=== PATIENT | female | born 1990 | race Caucasian/White ===

== ENCOUNTER → 2023-03-03 11:45 | Outpatient (BNVA) | payer OTHER, SELFPAY | PROVIDERS: PCP Nurse Practitioner; Visit Provider Internal Medicine Pulmonary Disease | DX: R09.89 Other specified symptoms and signs involving the circulatory and respiratory systems (principal); J30.2 Other seasonal allergic rhinitis | CPT/HCPCS: 36415; 82785; 85025; 86003; 99204 ==

== ENCOUNTER 2023-03-05 09:03 | Outpatient (CLI) | payer OTHER, SELFPAY ==
--- NOTE | 2023-03-05 09:15 | FL_ITS ---
WS: [id number] EXAMINATION: FL barium swallow 28131 REASON FOR EXAM: Occasional heartburn and hesitancy of swallowing ORDER DATE: 03/05/2023 9:13 AM COMPARISON: None available. TECHNIQUE: The patient was able to swallow thick barium for the esophagram. Cine-fluoroscopy with rapid sequence imaging was obtained while the patient swallowed. The patient was also placed supine and in various recumbent positions during the exam. FINDINGS: There was a normal mucosal fold pattern in the upper esophagus. There is no sign of diverticula, webs or stricture. There was no delay in contrast emptying from the esophagus into the stomach. There wer e no tertiary contraction waves to delay esophageal emptying. There is no sliding hiatal hernia. With provocative maneuvers no gastroesophageal reflux was not seen. The distal esophageal mucosal pattern is unremarkable. IMPRESSION: Normal esophageal study. FLUOROSCOPY TIME: 1min [id number] # OF SPOT FILMS:
== END 2023-03-05 09:04 | disposition home or self-care (01) ==
PROVIDERS: PCP Nurse Practitioner; Visit Provider Internal Medicine Pulmonary Disease
DX: R09.89 Other specified symptoms and signs involving the circulatory and respiratory systems (principal)
CPT/HCPCS: 74220

== ENCOUNTER → 2023-11-06 09:56 | Outpatient (BNVA) | payer OTHER, SELFPAY | PROVIDERS: PCP Nurse Practitioner; Referring Provider Nurse Practitioner; Visit Provider Dermatology | DX: S60.931A Unspecified superficial injury of right thumb, initial encounter (principal); X58.XXXA Exposure to other specified factors, initial encounter; L40.8 Other psoriasis; L81.4 Other melanin hyperpigmentation; D22.61 Melanocytic nevi of right upper limb, including shoulder | CPT/HCPCS: 99204 ==

== ENCOUNTER → 2023-11-26 10:10 | Outpatient (BNVA) | payer OTHER, SELFPAY | PROVIDERS: PCP Nurse Practitioner; Referring Provider Nurse Practitioner; Visit Provider Surgery | DX: R19.7 Diarrhea, unspecified (principal); R10.9 Unspecified abdominal pain; G89.29 Other chronic pain | CPT/HCPCS: 99204 ==

== ENCOUNTER → 2023-12-12 12:24 | Outpatient (BNVA) | payer OTHER, SELFPAY | PROVIDERS: PCP Nurse Practitioner; Visit Provider Surgery | DX: R19.7 Diarrhea, unspecified (principal) | CPT/HCPCS: 82274; 83630; 83993 ==

== ENCOUNTER 2024-01-13 10:32 | Day surgery (SDC) | payer OTHER, SELFPAY ==
[2024-01-13 10:48] VITALS: BP 121/83; PULSE 90; RESP 18; TEMP 36.6; O2SAT 94; BMI 32.0
--- NOTE | 2024-01-13 10:58 | W.PM.OPSFHP ---
Same Day Surgery H&P Indication for Procedure/HPI DATE OF PROCEDURE: January 13, 2024 CHIEF COMPLAINT/INDICATIONFOR SURGICAL PROCEDURE: abdominal pain and diarrhea PREOP DIAGNOSIS: abdominal pain and diarrhea PLANNED PROCEDURE: Operation Date: 01/13/24 12:00 Proposed Procedures p EGD 03714, 55989, G0105, R19.7, R10.9(Not Applicable) - Bob Bassett MD s Colonoscopy(Not Applicable) - Bob Bassett MD Medications/Allergies* Home Medications Medication Instructions Recorded Confirmed Type montelukast 10 mg tablet 10 mg PO DAILY 10/31/22 01/08/24 History venlafaxine 150 mg 150 mg PO DAILY 10/31/22 01/08/24 History capsule,extended release 24 hr albuterol 90 mcg inhalation PRN 01/08/24 01/08/24 History aripiprazole 5 mg tablet (Abilify) 5 mg PO DAILY 01/08/24 01/08/24 History epinephrine 0.3 mg/0.3 mL 0.3 mg IM Q4H PRN Allergic Reaction 01/13/24 01/13/24 History injection, auto-injector Allergies/Adverse Reactions Allergy/AdvReac Type Severity Reaction Status Date / Time Alpha-Gal Allergy Intermediate ALGY-Hives Verified 01/13/24 10:42 (Khgrsxkcc-Oexrw-5,3-Gala Pertinent History/Comorbid Conditions* Family History (Updated 03/03/23 @ 10:15 by Shayy Vaughan) Graves disease Mother Diabetes Mother Pertinent Exam Findings alert, oriented x 3, clear to auscultation bilaterally and regular rate & rhythm Recommendations Surgery/Procedure today Coding Level of Care Code Acute Code for Chg Fwd
[2024-01-13] MEDS: sodium chloride 0.9% 1,000 ML 30 ML IV (11:07)
--- NOTE | 2024-01-13 11:07 | ANES.PREANE2 ---
Pre-Anesthetic Assessment Height/Weight: Height 1.57 m Weight 79.379 kg Temp Pulse Resp BP Pulse Ox O2 Del Method 97.9 F 90 18 121/83 94 Room Air 01/13/24 10:48 01/13/24 10:48 01/13/24 10:48 01/13/24 10:48 01/13/24 10:48 01/13/24 10:48 Preop Diagnosis: abdominal pain and diarrhea Operation Date: 01/13/24 12:00 Proposed Procedures p EGD 69639, 64960, G0105, R19.7, R10.9(Not Applicable) - Bob Bassett MD s Colonoscopy(Not Applicable) - Bob Bassett MD Was Beta [place] taken within 24 hours: N/A Was Clonidine taken within 24 hours: N/A Last intake: Intake Last Liquid Date 01/12/24 Last Liquid Time 21:00 Last Solid Date 01/11/24 Last Solid Time 18:00 Social smokes marijuana daily Exam alert, oriented x 3, clear to auscultation bilaterally and regular rate & rhythm Airway Submandibular: within normal limits Cervical ROM: within normal limits Mallampati: Class II Dentition: caps (Two front incisors) History/ROS No significant history except as noted and No significant complaints Pulmonary Asthma CV/HEM None reported None reported Hepatic None reported GI Gastroesophageal Reflux Disease diarrhea Metabolic None reported Musc/skel None reported Neuropsych None reported Anesthetic Plan ASA status: 2 Anesthesia: Anesthesia Evaluation and MAC Risk of > 500 ml blood loss (7ml/kg in children): No Medications/Allergies Home Medications Medication Instructions Recorded Confirmed Last Taken Type montelukast 10 mg tablet 10 mg PO DAILY 10/31/22 01/08/24 01/12/24 History venlafaxine 150 mg 150 mg PO DAILY 10/31/22 01/08/24 01/12/24 History capsule,extended release 24 hr budesonide 160 mcg-glycopyr 9 2 inh inhalation BID #10.7 grams 03/03/23 01/08/24 01/13/24 Rx mcg-formot 4.8 mcg/actuation HFA inhaler (Breztri Aerosphere) albuterol 90 mcg inhalation PRN 01/08/24 01/08/24 01/08/24 History aripiprazole 5 mg tablet (Abilify) 5 mg PO DAILY 01/08/24 01/08/24 01/12/24 History epinephrine 0.3 mg/0.3 mL 0.3 mg IM Q4H PRN Allergic Reaction 01/13/24 01/13/24 Unknown History injection, auto-injector Allergies Allergy/AdvReac Type Severity Reaction Status Date / Time Alpha-Gal Allergy Intermediate ALGY-Hives Verified 01/13/24 10:42 (Ybtkgyrsa-Kdwce-7,3-Gala PFSH Anesthesia Family History Mother Diabetes Graves disease Father No problems noted. Female Reproductive History Date of last menstrual period: 01/01/24 Data Anesthesia Cardiac Studies: No Data to Display
[2024-01-13 11:11] LABS: OR HCG Qualitative Urine Negative (Negative)
[2024-01-13 12:10] VITALS: BP 106/74; PULSE 72; RESP 16; TEMP 36.6; O2SAT 98
[2024-01-13 12:21] VITALS: BP 121/88; PULSE 87; RESP 16; O2SAT 97
--- NOTE | 2024-01-13 14:01 | ANE.PACU2 ---
Inpatient post-anesthesia follow up: Airway intact: Yes Vital signs: Temperature 98 F Pulse Rate 87 Respiratory Rate 16 Blood Pressure 121/88 Pulse Oximetry 97 Oxygen Delivery Me thod Room Air Oxygen Flow Rate Fraction of Inspir ed Oxygen Hydration adequate: Yes Nausea and vomiting: No Pain level: 2 Mental status: Baseline
== END 2024-01-13 12:45 | disposition home or self-care (01) ==
PROVIDERS: Anesthesiology; PCP Nurse Practitioner; Visit Provider Surgery
PROC: 0DJ08ZZ Inspection of Upper Intestinal Tract, Via Natural or Artificial Opening Endoscopic (ICD-10-PCS; CPT 43235; principal; 2024-01-13 12:00)
PROC: 0DJD8ZZ Inspection of Lower Intestinal Tract, Via Natural or Artificial Opening Endoscopic (ICD-10-PCS; CPT 45378; 2024-01-13 12:00)
DX: R19.7 Diarrhea, unspecified (principal); K29.50 Unspecified chronic gastritis without bleeding
CPT/HCPCS: 45380; 81025; 88305; J2704; J7030

== ENCOUNTER → 2024-02-04 09:33 | Outpatient (BNVA) | payer OTHER, SELFPAY | PROVIDERS: PCP Nurse Practitioner; Visit Provider Surgery | DX: Z09 Encounter for follow-up examination after completed treatment for conditions other than malignant neoplasm (principal) | CPT/HCPCS: 99213 ==

== ENCOUNTER 2024-05-12 10:29 | Emergency (ER) | payer OTHER, SELFPAY ==
[2024-05-12 11:05] VITALS: BP 118/82; PULSE 87; RESP 16; TEMP 36.7; O2SAT 98; BMI 34.5
--- NOTE | 2024-05-12 13:07 | ED_ITS ---
HPI - Seizure 2 General: Chief Complaint: Seizure Stated Complaint: seizure last night ([place]) Time Seen by Provider: 05/12/24 13:04 History of Present Illness: HPI Narrative: 33-year-old female comes in today for a concern of possible seizure. Patient was taken a nap on her couch and when she awakened she noticed that she had wet herself and had a headache and brain felt foggy. Patient was concerned that she might have a seizure. Patient's female significant other reported that she did not note any violent tremors or twitches but did note that her 1 hand seem to be very rhythmic and movement for a short period of time. Patient denies any prior episodes. Patient takes venlafaxine and Singulair routinely. Patient occasionally uses marijuana. Patient has occasional headaches. Patient takes no routine [id number]-gtb-ntrspkd medicines or supplements. Patient denies any recent stress or illnesses. Related Data Home Medications Medication Instructions Recorded Confirmed montelukast 10 mg tablet 10 mg PO DAILY 10/31/22 02/04/24 venlafaxine 150 mg 150 mg PO DAILY 10/31/22 02/04/24 capsule,extended release 24 hr albuterol 90 mcg inhalation PRN 01/08/24 02/04/24 aripiprazole 5 mg tablet (Abilify) 5 mg PO DAILY 01/08/24 02/04/24 epinephrine 0.3 mg/0.3 mL 0.3 mg IM Q4H PRN Allergic Reaction 01/13/24 02/04/24 injection, auto-injector Previous Rx's Medication Instructions Recorded budesonide 160 mcg-glycopyr 9 2 inh inhalation BID #10.7 grams 03/03/23 mcg-formot 4.8 mcg/actuation HFA inhaler (Breztri Aerosphere) pantoprazole 40 mg tablet,delayed 40 mg PO BID #60 tabs 01/13/24 release Allergies Allergy/AdvReac Type Severity Reaction Status Date / Time Alpha-Gal Allergy Intermediate ALGY-Hives Verified 02/04/24 09:38 (Ckdunbnno-Qbrik-6,3-Gala Review of Systems 2 General: Reports: 10 or more systems reviewed and unremarkable except in HPI and below PFSH ED 2 PFSH: Family History Mother Diabetes Graves disease Father No problems noted. Social History Smoking and tobacco/nicotine status: current every day tobacco/nicotine user Physical Exam 2 Const: COMMON NORMALS: alert HENMT: COMMON NORMALS: normocephalic HEAD & SCALP: normocephalic Neck/C-Spine: COMMON NORMALS: full ROM Resp: COMMON NORMALS: normal respiratory effort and clear to auscultation bilaterally AUSCULTATION: clear to auscultation bilaterally Cardio: COMMON NORMALS: regular rate and regular rhythm RATE: regular rate RHYTHM: regular rhythm Back/Pelvis: COMMON NORMALS: thoracic and lumbar spine normal to inspection Extremity: COMMON NORMALS: normal to inspection Neuro: SENSORIUM/ORIENTATION: Yes alert Psych: COMMON NORMALS: mental status grossly normal, cooperative and normal affect Skin: COMMON NORMALS: turgor normal GENERAL SKIN EXAM: turgor normal Course 2 Vital Signs: Vital signs: Vital Signs Temperature 98.0 F 05/12/24 11:05 Pulse Rate 78 05/12/24 15:35 Respiratory Rate 16 05/12/24 14:50 Blood Pressure 129/78 05/12/24 15:35 Pulse Oximetry 97 05/12/24 15:35 Oxygen Delivery Me thod Room Air 05/12/24 14:50 MDM - Seizure MDM Narrative Medical decision making narrative: Patient presents to the ER for concerns of possible seizure episode last evening. Patient appears nontoxic. Patient moves all extremities well. Respirations are even. Lungs are clear to auscultation. No focal neurodeficits. Vital signs are normal. Differential diagnosis includes but not limited to epileptic seizures, conversion disorder, brain mass or tumor, electrolyte imbalance, urinary tract infection. CT of the head was unremarkable. CBC showed no abnormalities. CMP showed a sodium of 135, lactic acid of 2 point. Urinalysis showed negative hCG, no significance for infection, and positive for THC. Lactic acid being elevated may be suggestive of a seizure-like episode. Procalcitonin was negative. Recommend follow-up with neurology for further evaluation. No signs of significant illness or concerns for tumor or mass in the brain. Recommend follow-up for further evaluation and treatment. Patient reported understanding agreed to plan. Lab Data 05/12/24 13:41 05/12/24 13:41 Labs: Radiology Impressions Head CT 05/12/24 13:23 IMPRESSION: Negative head CT. Laboratory Results WBC 10.54 10^3/uL (3.29-11.43) 05/12/24 13:41 RBC 4.90 10^6/uL (3.85-5.65) 05/12/24 13:41 Hgb 13.90 g/dL (11.27-16.99) 05/12/24 13:41 Hct 42.8 % (36-47) 05/12/24 13:41 MCV 87.3 fl (85-98) 05/12/24 13:41 MCH 28.4 pg (27-33) 05/12/24 13:41 MCHC 32.5 g/dL (30-55) 05/12/24 13:41 RDW 13.7 % (12.1-15.1) 05/12/24 13:41 Plt Count 322 10^3/cmm (157-399) 05/12/24 13:41 MPV 10.8 fL (7.4-10.4) H 05/12/24 13:41 Neut % (Auto) 61.1 % 05/12/24 13:41 Lymph % (Auto) 26.9 % 05/12/24 13:41 Mcpherson % (Auto) 5.0 % 05/12/24 13:41 Eos % (Auto) 5.4 % 05/12/24 13:41 Baso % (Auto) 0.9 % 05/12/24 13:41 Neut # (Auto) 6.44 10^3/uL (1.8-7.7) 05/12/24 13:41 Lymph # (Auto) 2.8 10^3/uL (0.8-4.8) 05/12/24 13:41 Mcpherson # (Auto) 0.5 10^3/uL (0.2-0.9) 05/12/24 13:41 Eos # (Auto) 0.6 10^3/uL (0.0-0.8) 05/12/24 13:41 Baso # (Auto) 0.1 10^3/uL (0.0-0.1) 05/12/24 13:41 Nucleated RBC % (auto) 0 % 05/12/24 13:41 Nucleated RBCs # 0.0 /100WBC 05/12/24 13:41 Sodium 135 mmol/L (136-145) L 05/12/24 13:41 Potassium 3.6 mmol/L (3.5-5.1) 05/12/24 13:41 Chloride 99 mmol/L (98-107) 05/12/24 13:41 Carbon Dioxide 23 mmol/L (22-29) 05/12/24 13:41 Anion Gap 16.6 (5-19) 05/12/24 13:41 BUN 7 mg/dL (6-20) 05/12/24 13:41 Creatinine 0.7 mg/dL (0.5-0.9) 05/12/24 13:41 GFR Calculation 97.0 mL/min (90-130) 05/12/24 13:41 Glucose 121 mg/dL (65-115) H 05/12/24 13:41 Calculated Osmolality 279 mOsm/kg (285-295) L 05/12/24 13:41 Lactic Acid 2.9 mmol/L (0.5-2.2) H 05/12/24 13:41 Calcium 8.7 mg/dL (8.5-10.5) 05/12/24 13:41 Total Bilirubin 0.2 mg/dL (0.15-1.2) 05/12/24 13:41 AST 24 U/L (0-32) 05/12/24 13:41 ALT 28 U/L (0-33) 05/12/24 13:41 Alkaline Phosphatase 64 U/L (35-105) 05/12/24 13:41 Total Protein 7.5 g/dL (6.6-8.7) 05/12/24 13:41 Albumin 4.2 g/dL (3.5-5.2) 05/12/24 13:41 Globulin 3.3 g/dL (1.3-4.6) 05/12/24 13:41 Procalcitonin 0.02 ng/mL (0-0.5) 05/12/24 13:41 HCG, Qual Negative (Negative) 05/12/24 14:25 Urine Color Yellow (Yellow) 05/12/24 14:25 Urine Appearance Clear (CLEAR) 05/12/24 14:25 Urine pH 7.0 (5-7) 05/12/24 14:25 Ur Specific Atkins 1.028 (1.005-1.030) 05/12/24 14:25 Urine Protein Trace (Negative) A 05/12/24 14:25 Urine Glucose (UA) Negative (Normal) 05/12/24 14:25 Urine Ketones Trace (Negative) 05/12/24 14:25 Urine Blood Negative (Negative) 05/12/24 14:25 Urine Nitrate Negative (Negative) 05/12/24 14:25 Urine Bilirubin Negative (Negative) 05/12/24 14:25 Urine Urobilinogen 1.0 mg/dL (Negative) 05/12/24 14:25 Ur Leukocyte Esterase Negative (Negative) 05/12/24 14:25 Urine RBC 0-4 /hpf (0-2) H 05/12/24 14:25 Urine WBC 0-4 /hpf (0-5) H 05/12/24 14:25 Ur Squamous Epith Cells 5-10 /hpf (0-5) H 05/12/24 14:25 Amorphous Sediment Not Reportable 05/12/24 14:25 Urine Bacteria Trace /hpf (NONE) 05/12/24 14:25 Hyaline Casts 0-4 /lpf H 05/12/24 14:25 Urine Mucus 1+ /hpf 05/12/24 14:25 Urine Opiates Screen Negative ng/mL (Negative) 05/12/24 14:25 Ur Barbiturates Screen Negative ng/mL (Negative) 05/12/24 14:25 Ur Phencyclidine Scrn Negative ng/mL (Negative) 05/12/24 14:25 Ur Amphetamines Screen Negative ng/mL (Negative) 05/12/24 14:25 U Benzodiazepines Scrn Negative ng/mL (Negative) 05/12/24 14:25 Urine Cocaine Screen Negative ng/mL (Negative) 05/12/24 14:25 U Marijuana (THC) Screen Positive ng/mL (Negative) H 05/12/24 14:25 All radiology interpretation(s) finalized by discharge Discharge Plan Discharge Patient Disposition: Home Clinical Impression: Seizure Condition: Stable Prescriptions: No Action venlafaxine 150 mg capsule,extended release 24hr 150 mg PO DAILY montelukast 10 mg tablet 10 mg PO DAILY Breztri Aerosphere 160-9-4.8 mcg/actuation HFA aerosol inhaler 2 inh inhalation BID Qty: 10.7 6RF aripiprazole [Abilify] 5 mg Tablet 5 mg PO DAILY albuterol 90 mcg inhalation PRN epinephrine 0.3 mg/0.3 mL Auto-Injector 0.3 mg IM Q4H PRN (Reason: Allergic Reaction) pantoprazole 40 mg tablet,delayed release (DR/EC) 40 mg PO BID Qty: 60 0RF Discharge Orders: Discharge ED (Routine); Ordered 05/12/24 Ordered By: Seun Rossi Referrals: Valeria Sneed FNP [Primary Care Provider] - Discharge Diet: Usual diet Discharge Activity: Increase activity as tolerated Patient Instructions: New-Onset Seizure in Adults (ED) Activity Restrictions/Additional Instructions: Follow-up with neurologist for further evaluation and treatment. Continue with routine medications as directed. Drink plenty of water and fluids. Return to ER for new concerns. Case management will contact you to help with follow-up appoint with neurology. For safety of yourself and others at this time would be recommended to avoid driving until cleared by neurologist. Coding Level of Care Code ED Punch Operator for Misael Turner
--- NOTE | 2024-05-12 13:23 | CT_ITS ---
WS: [id number] CT HEAD NONCONTRAST HISTORY: seizure, headaches TECHNIQUE: Contiguous axial imaging performed through the brain. Bone and soft tissue windows. Sagitt al and coronal reformats reviewed. All CT scans at [facility] use at least one of these dose optimization techniques: automated exposure control; mA and/or kV adjustment per patient size (includ es targeted exams where dose is matched to clinical indication); or iterative reconstruction. DLP: 1021.98 mGy.cm COMPARISON: None available. No acute intracranial hemorrhage, midline shift or mass effect. No atrophy or prior infarcts or herniation. Ventricles: Normal size with no hydrocephalus. No inferior displacement of cerebellar tonsils. Paranasal sinuses: As visualized are clear. Mastoid air cells: Well pneumatized. Calvarium and scalp: Skull is intact with no soft tissue edema or swelling. CT/CT head wo con* [id number] IMPRESSION: Negative head CT.
[2024-05-12 14:01] LABS: Basophils # 0.1 10^3/uL (0.0-0.1); Basophils % 0.9 %; Eosinophils # 0.6 10^3/uL (0.0-0.8); Eosinophils % 5.4 %; Hematocrit 42.8 % (36-47); Lymphocytes # 2.8 10^3/uL (0.8-4.8); Lymphocytes % 26.9 %; Mean Corpuscular HGB Conc 32.5 g/dL (30-55); Mean Corpuscular Hemoglobin 28.4 pg (27-33); Mean Corpuscular Volume 87.3 fl (85-98); Mean Platelet Volume 10.8 fL (7.4-10.4); Monocytes # 0.5 10^3/uL (0.2-0.9); Neutrophils # 6.44 10^3/uL (1.8-7.7); Neutrophils % 61.1 %; Nucleated Red Blood Cells % 0 %; Platelet Count 322 10^3/cmm (157-399); Red Cell Distribution Width 13.7 % (12.1-15.1); White Blood Count 10.54 10^3/uL (3.29-11.43)
[2024-05-12 14:20] LABS: Alanine Aminotransferase 28 U/L (0-33); Albumin Level 4.2 g/dL (3.5-5.2); Alkaline Phosphatase 64 U/L (35-105); Anion Gap 16.6 (5-19); Aspartate Amino Transferase 24 U/L (0-32); Blood Urea Nitrogen 7 mg/dL (6-20); Calcium 8.7 mg/dL (8.5-10.5); Carbon Dioxide 23 mmol/L (22-29); Chloride 99 mmol/L (98-107); Creatinine Clr Calc Pharmacy 117.2118; Globulin 3.3 g/dL (1.3-4.6); Glucose 121 mg/dL (65-115); Osmolality Calculated 279 mOsm/kg (285-295); Potassium 3.6 mmol/L (3.5-5.1); Sodium 135 mmol/L (136-145); Total Bilirubin 0.2 mg/dL (0.15-1.2); Total Protein 7.5 g/dL (6.6-8.7)
[2024-05-12 14:21] LABS: Lactic Sepsis W/Reflex 2.9 mmol/L (0.5-2.2)
[2024-05-12 14:27] LABS: Procalcitonin 0.02 ng/mL (0-0.5)
[2024-05-12 14:40] LABS: HCG Qualitative Urine. Negative (Negative)
[2024-05-12 14:50] VITALS: BP 122/86; PULSE 92; RESP 16; O2SAT 99
[2024-05-12 15:26] LABS: Bilirubin Urine Negative (Negative); Blood Urine Negative (Negative); Glucose Urine UA Negative (Normal); Ketones Urine Trace (Negative); Leukocyte Esterase Urine Negative (Negative); Nitrate Urine Negative (Negative); Protein Urine Trace (Negative); Specific Gravity, Urine 1.028 (1.005-1.030); Urine Appearance Clear (CLEAR); Urine Color Yellow (Yellow)
[2024-05-12 15:35] VITALS: BP 129/78; PULSE 78; O2SAT 97
[2024-05-12 15:36] LABS: UA Manual Slide Review YES; UA Slide Review UA Slide Review Perf
[2024-05-12 15:37] LABS: Amphetamines Screen Urine Negative (Negative); Barbiturates Screen Urine Negative (Negative); Benzodiazepines Screen Urine Negative (Negative); Cocaine Screen Urine Negative (Negative); Opiate Screen Urine Negative (Negative); PCP Screen Urine Negative (Negative); THC Screen Urine Positive (Negative)
[2024-05-12 15:38] LABS: Reflex Lactate Order REFLEX LACTIC ORDERD
[2024-05-12 15:38] LABS: Add Urine Culture? No; Add Urine Microscopic? YES; Bacteria Urine TRACE /hpf; Hyaline Casts Urine 0-4 /lpf; Mucus Urine 1+ /hpf; RBC Urine 0-4 /hpf (0-2); WBC Urine 0-4 /hpf (0-5)
--- NOTE | 2024-05-14 01:35 | DCPLANNER ---
Message sent to Neurology for follow up on Seizures-
== END 2024-05-12 15:36 | disposition home or self-care (01) ==
PROVIDERS: Emergency Provider Nurse Practitioner Family; PCP Nurse Practitioner
DX: R56.9 Unspecified convulsions (principal); E11.9 Type 2 diabetes mellitus without complications; Z87.891 Personal history of nicotine dependence
CPT/HCPCS: 36415; 70450; 80053; 80306; 81001; 81025; 83605; 84145; 85025; 99284

== ENCOUNTER → 2024-07-15 11:55 | Outpatient (BNVA) | payer OTHER, SELFPAY | PROVIDERS: PCP Nurse Practitioner; Visit Provider Specialist | DX: R56.9 Unspecified convulsions (principal); R03.0 Elevated blood-pressure reading, without diagnosis of hypertension; G47.10 Hypersomnia, unspecified; R23.2 Flushing | CPT/HCPCS: 99203; 99205 ==

== ENCOUNTER 2024-07-19 10:10 | Emergency (ER) | payer OTHER, SELFPAY ==
[2024-07-19] VITALS (7 sets, daily range): BP systolic 132–153; BP diastolic 83–95; PULSE 91–121; RESP 16–18; TEMP 36.9; O2SAT 95–97; BMI 34.7
--- NOTE | 2024-07-19 10:16 | ECG_ITS ---
[facility] Date[facility] 2024-07-19 Pat Name: Julieta Miller Department: Room: Gender: Female [employer]: : 1990 Requested By: Megan Hooker Order Number: [id number] Thu MD: Murphy Blanca M.D. Measurements Intervals [place] Rate: 114 P: 74 IN: 112 QRS: 60 QRSD: 73 T: 36 QT: 308 QTc: 424 Interpretive Statements SINUS TACHYCARDIA WITH SHORT IN INTERVAL MODERATE ST DEPRESSION [0.05+ mV ST DEPRESSION] No previous ECG available for comparison Electronically Signed On 07-19-2024 17:27:04 DIRECTOR CALL by Murphy Blanca M.D. [email or web address]
--- NOTE | 2024-07-19 10:29 | XRR_ITS ---
PROCEDURE INFORMATION: Exam: XR Chest Exam date and time: 07/19/2024 11:02 AM Age: 33 years old Clinical indication: Cough and shortness of breath; Additional info: Cough, SOB, asthma TECHNIQUE: Imaging protocol: Radiologic exam of the chest. Views: 1 view. COMPARISON: 1. CT chest wo con [id number] 01/09/2023 1:46 PM 2. DX XR chest 2V* [id number] 12/26/2022 3:47 PM FINDINGS: Lungs: Unremarkable. No consolidation. Pleural spaces: Unremarkable. No pleural effusion. No pneumothorax. Heart/Mediastinum: Unremarkable. No cardiomegaly. Bones/joints: Unremarkable. XR/XR chest 1V portable [id number] IMPRESSION: No acute findings.
--- NOTE | 2024-07-19 10:47 | ED_ITS ---
HPI - Asthma General: Chief Complaint: Shortness of Breath/Dyspnea Stated Complaint: sob Time Seen by Provider: 07/19/24 10:35 Source: patient Mode of arrival: ambulatory Limitations: no limitations History of Present Illness: Patient is a nice 33-year-old female presents to ED today with a complaint of shortness of breath and difficulty breathing and cough. Believes she has bronchitis. She states symptoms started approximately 2 days ago. She was recently in [place] with some other individuals who developed similar symptoms around the same time as she did. She is a known asthmatic. She states normally she does not require her rescue inhaler and only uses this when she gets sick . She states she used her nebulizer albuterol vials multiple times yesterday evening without any relief. MD complaint: asthma attack , shortness of breath and wheezing Onset (ago): day(s) Severity: moderate Context: recent URI Associated symptoms: Reports non-productive cough; Deny chest pain, fever(s), hemoptysis or syncope Related Data Home Medications Medication Instructions Recorded Confirmed montelukast 10 mg tablet 10 mg PO DAILY 10/31/22 07/19/24 venlafaxine 150 mg 150 mg PO DAILY 10/31/22 07/19/24 capsule,extended release 24 hr epinephrine 0.3 mg/0.3 mL 0.3 mg IM Q4H PRN Allergic Reaction 01/13/24 07/19/24 injection, auto-injector acetaminophen 500 mg tablet 1,000 mg PO QID PRN pain or fever 07/19/24 07/19/24 (Tylenol Extra Strength) albuterol sulfate 90 mcg/actuation 1 puff inhalation QID PRN 07/19/24 07/19/24 aerosol inhaler (Ventolin HFA) Shortness Of Breath Or Wheezing calcium carbonate (Tums) 200 mg PO QID PRN Acid Reflux 07/19/24 07/19/24 cholecalciferol (vitamin D3) 125 125 mcg PO DAILY 07/19/24 07/19/24 mcg (5,000 unit) tablet (Vitamin D3) guaifenesin 200 mg tablet 400 mg PO Q4H PRN Cough 07/19/24 07/19/24 Previous Rx's Medication Instructions Recorded budesonide 160 mcg-glycopyr 9 2 inh inhalation BID #10.7 grams 03/03/23 mcg-formot 4.8 mcg/actuation HFA inhaler (Breztri Aerosphere) pantoprazole 40 mg tablet,delayed 40 mg PO BID #60 tabs 01/13/24 release ipratropium 0.5 mg-albuterol 3 mg 3 ml inhalation Q4H PRN shortness 07/19/24 (2.5 mg base)/3 mL nebulization of breath or wheezing #90 mL soln prednisone 10 mg tablet 10 mg PO DAILY 7 days #27 tabs 07/19/24 Allergies Allergy/AdvReac Type Severity Reaction Status Date / Time Alpha-Gal Allergy Intermediate ALGY-Hives Verified 07/19/24 10:27 ([id number]-[id number]-7,3-Gala Review of Systems Const: Denies: fever(s), chills, body aches, fatigue or malaise ENMT: Reports: nasal discharge and nasal congestion; Denies: throat pain, odynophagia or ear or mastoid pain Card: Denies: chest pain, palpitations, lightheadedness, syncope or pre-syn cope Resp: Reports: dyspnea, non-productive cough and wheezing; Denies: pain on inspiration or hemoptysis GI: Denies: abdominal pain, nausea, vomiting or diarrhea Musc: Denies: neck pain, back pain, extremity pain, extremity swelling, joint pain or joint swelling Skin/Breast: Denies: rash Neuro: Denies: headache(s), numbness in extremities, weakness in extremities, sensory changes or dizziness PFSH ED 2 PFSH: Family History Mother Diabetes Graves disease Father No problems noted. Social History Smoking and tobacco/nicotine status: current every day tobacco/nicotine user (vapes) Physical Exam Const: COMMON NORMALS: no acute distress, patient oriented x3, no limitations, alert and well nourished GENERAL APPEARANCE: cooperative ORIENTATION/CONSCIOUSNESS: Yes awake, Yes oriented to person, Yes oriented to place and Yes oriented to time HENMT: COMMON NORMALS: external ears normal, EAC's normal and TM's normal bilaterally FACE & SINUS: normal facial exam EXTERNAL EAR: Yes external ears normal EXTERNAL AUDITORY CANAL: EAC's normal TYMPANIC MEMBRANE: TM's normal bilaterally MOUTH: Normal oral and palatal mucosa present and lip normal THROAT: posterior oropharynx normal and tonsils normal Eye: GENERAL EYE: appearance normal, both eyes and all related structures Neck/C-Spine: COMMON NORMALS: full ROM, no lymphadenopathy and no meningeal signs GENERAL: Yes normal visual inspection Chest: COMMONS NORMALS: normal inspection of the chest and normal palpation of entire chest wall Resp: EFFORT & INSPECTION: Yes respiratory distress (mild increased effort) AUSCULTATION: wheezes throughout Cardio: COMMON NORMALS: regular rhythm RATE: tachycardic (intermittently after coughing) RHYTHM: regular rhythm Extremity: COMMON NORMALS: no clubbing, cyanosis or edema, no calf tenderness and no pedal edema GENERAL: Yes normal exam except as noted Neuro: COMMON NORMALS: patient oriented x3, moves all extremities, no focal motor deficits, no sensory deficits noted and gait normal SENSORIUM/ORIENTATION: Yes alert, Yes oriented to person, Yes oriented to place and Yes oriented to time MENINGEAL SIGNS: Yes no meningeal signs Course Vital Signs: Vital signs: Vital Signs Temperature 98.4 F 07/19/24 10:21 Pulse Rate 121 H 07/19/24 11:55 Respiratory Rate 18 07/19/24 11:55 Blood Pressure 134/88 07/19/24 11:36 Pulse Oximetry 97 07/19/24 11:55 Oxygen Delivery Me thod Room Air 07/19/24 11:55 MDM - Asthma Medical Decision Making CXR is unremarkable. Patient feels significantly better after IV Solu-Medrol and stacked DuoNeb nebulizer treatments. She feels comfortable going home at this time. Respiratory panel collected and pending. She will be placed on a steroid taper at home. She is requesting DuoNebs to use in her nebulizer at home. Return to ED precautions given. Medical Records I reviewed the patient's medical records. Lab Data Radiology Impressions Chest X-Ray 07/19/24 10:29 IMPRESSION: No acute findings. All radiology interpretation(s) finalized by discharge Discharge Plan Discharge Patient Disposition: Home Clinical Impression: Viral upper respiratory tract infection with cough Asthma exacerbation Qualifiers: Asthma severity: moderate Asthma persistence: unspecified Qualified Code(s): J45.901 - Unspecified asthma with (acute) exacerbation Condition: Stable Prescriptions: New prednisone 10 mg tablet 10 mg PO DAILY 7 Days Qty: 27 0RF Rx Instructions: 6 tabs on days 1-2, 5 tabs on days 3, 4 tabs on day 4, 3 tabs on day 5, 2 tabs on day 6, 1 tab on day 7 ipratropium-albuterol 0.5 mg-3 mg(2.5 mg base)/3 mL solution for nebulization 3 ml inhalation Q4H PRN (Reason: shortness of breath or wheezing) Qty: 90 0RF Rx Instructions: until breathing returns to target peak flow/parameters No Action venlafaxine 150 mg capsule,extended release 24hr 150 mg PO DAILY montelukast 10 mg tablet 10 mg PO DAILY Breztri Aerosphere 160-9-4.8 mcg/actuation HFA aerosol inhaler 2 inh inhalation BID Qty: 10.7 6RF acetaminophen [Tylenol Extra Strength] 500 mg Tablet 1,000 mg PO QID PRN (Reason: pain or fever ) guaifenesin 200 mg Tablet 400 mg PO Q4H PRN (Reason: Cough) albuterol sulfate [Ventolin HFA] 90 mcg/actuation Hfa Aerosol Inhaler 1 puff INHALATION QID PRN (Reason: Shortness Of Breath Or Wheezing) cholecalciferol (vitamin D3) [Vitamin D3] 125 mcg (5,000 unit) Tablet 125 mcg PO DAILY calcium carbonate [Tums] 200 mg calcium (500 mg) Tablet,Chewable 200 mg PO QID PRN (Reason: Acid Reflux) epinephrine 0.3 mg/0.3 mL Auto-Injector 0.3 mg IM Q4H PRN (Reason: Allergic Reaction) pantoprazole 40 mg tablet,delayed release (DR/EC) 40 mg PO BID Qty: 60 0RF Discharge Orders: Discharge ED (Routine); Ordered 07/19/24 Ordered By: Megan Hooker Referrals: Valeria Sneed FNP [Primary Care Provider] - Patient Instructions: Asthma Exacerbation - Adult, Upper Respiratory Infection (DC) Activity Restrictions/Additional Instructions: As we discussed, we will contact you later if your respiratory panel comes back positive for anything. Your chest x-ray here was unremarkable. I have called you in steroids and DuoNeb nebulizers to the pharmacy you specified. You need to return to the emergency department for shortness of breath, difficulty breathing, generally feeling worse or unwell, or any other concerns you may have. I hope you begin to feel better soon. Coding Level of Care Code ED [employer] for Misael Turner
[2024-07-19] MEDS: ipratropium-albuterol 3 mL Neb INHALATION ×3 (11:10→11:47)
[2024-07-19] MEDS: methylPREDNISolone sod succ 125 mg/2 mL INJ IVP (11:22)
[2024-07-19 13:23] LABS: Adenovirus Not Detected (NOT DETECT); Chlamydia Pneumoniae Not Detected (NOT DETECT); Coronavirus 229E,HKU1,NL63,OC4 Not Detected (NOT DETECT); Human Metapneumovirus Not Detected (NOT DETECT); Human Rhinovirus/Enterovirus Not Detected (NOT DETECT); Influenza A Not Detected (NOT DETECT); Influenza A H1 Not Detected (NOT DETECT); Influenza A H1-2009 Not Detected (NOT DETECT); Influenza A H3 Not Detected (NOT DETECT); Influenza B Not Detected (NOT DETECT); Mycoplasma Pneumoniae Not Detected (NOT DETECT); Parainfluenza Virus Type 1 Not Detected (NOT DETECT); Parainfluenza Virus Type 2 Not Detected (NOT DETECT); Parainfluenza Virus Type 3 Not Detected (NOT DETECT); Parainfluenza Virus Type 4 Not Detected (NOT DETECT); Respiratory Syncytial Virus B Not Detected (NOT DETECT); SARS-COV-2 Not Detected (NOT DETECT)
[2024-07-19 13:48] LABS: Respiratory Syncytial Virus A Detected (NOT DETECT)
== END 2024-07-19 12:22 | disposition home or self-care (01) ==
PROVIDERS: Emergency Provider Physician Assistant; PCP Nurse Practitioner
DX: J45.901 Unspecified asthma with (acute) exacerbation (principal); F17.290 Nicotine dependence, other tobacco product, uncomplicated
CPT/HCPCS: 71045; 87486; 87581; 87633; 93005; 94640; 96374; 99284; J2919

== ENCOUNTER → 2024-09-14 14:20 | Outpatient (BNVA) | payer OTHER, SELFPAY | PROVIDERS: PCP Nurse Practitioner; Visit Provider Internal Medicine Cardiovascular Disease | DX: R00.0 Tachycardia, unspecified (principal); R06.02 Shortness of breath | CPT/HCPCS: 36415; 84439; 84443; 84481 ==

== ENCOUNTER → 2024-09-16 07:50 | Outpatient (BNVA) | payer OTHER, SELFPAY | PROVIDERS: PCP Nurse Practitioner; Referring Provider Specialist; Visit Provider Specialist | DX: R56.9 Unspecified convulsions (principal) | CPT/HCPCS: 95819 ==

== ENCOUNTER 2024-10-15 10:45 | Outpatient (CLI) | payer OTHER, SELFPAY ==
--- NOTE | 2024-10-15 11:15 | USCV_ITS ---
Julieta Miller Age: 33 Gender: F : 1990 Exam Date: 10/15/2024 10:59 Ordering Phys: Wojciech Harry MD ([email or web address]) Technologist: TANESHA Exam Location: [facility] – [place] Indication: Tachy, SOB BP: 128 / 881 HR: 93 Rhythm: Sinus Technical Quality: Adequate MEASUREMENTS (Male / Female) Normal Values 2D ECHO LV Diastolic Diameter PLAX 4.6 cm 4.2 - 5.9 / 3.9 - 5.3 cm IVS Diastolic Thickness 1.0 cm 0.6 - 1.0 / 0.6 - 0.9 cm IVS Systolic Thickness 1.5 cm LVPW Diastolic Thickness 1.0 cm 0.6 - 1.0 / 0.6 - 0.9 cm LVPW Systolic Thickness 1.3 cm LVOT Diameter 1.9 cm LV Ejection Fraction 2D Teich 64.0 % LV Ejection Fraction MOD 4C 69.1 % LV Ejection Fraction MOD 2C 55.1 % LV Ejection Fraction 2C AL 57.1 % LA Diameter 2.4 cm RA Systolic Volume 4C AL 19.8 ml RA Systolic Volume 4C MOD 19.1 ml LA Sys Volume AL 26.8 cm cubed LA Sys Volume Index AL 13.0 cm cubed/m squared Aorta at Sinotubular Diameter 2.2 cm M-MODE LA Ao Ratio MM 1.4 AV Cusp Separation MM 1.2 cm DOPPLER AV Peak Velocity 125.0 cm/s LVOT Peak Velocity 109.0 cm/s AV Area Cont Eq vti 2.7 cm squared AV Area Cont Eq pk 2.4 cm squared MV Peak Velocity 91.0 cm/s MV Area PHT 4.2 cm squared Mitral E to A Ratio 1.1 TR Peak Velocity 85.0 cm/s TR Peak Gradient 2.9 mmHg TV Peak E Velocity 69.0 cm/s PV Peak Velocity 98.0 cm/s FINDINGS Left Ventricle Normal left ventricular size, systolic function and wall thickness, with no regional wall motion abnormalities. Left ventricular ejection fraction is estimated at 60 %. Grade II/IV diastolic dysfunction, moderately elevated filling pressures. Right Ventricle The right ventricle is normal in size and function. Right Atrium The right atrium is normal in size. Left Atrium The left atrium is normal in size. Mitral Valve Moderately thickened mitral valve. Moderate mitral annular calcification. No mitral valve stenosis. Trace mitral valve regurgitation. Aortic Valve Moderate aortic valve calcification. No aortic valve stenosis. Trace aortic valve regurgitation. Tricuspid Valve Mild tricuspid valve regurgitation. Pulmonic Valve Structurally normal pulmonic valve without significant stenosis. There is no pulmonic regurgitation. Pericardium Normal pericardium without effusion. Aorta Normal ascending aorta dimension. IVC The inferior vena cava appears normal. CONCLUSIONS Normal left ventricular size, systolic function and wall thickness, with no regional wall motion abnormalities. Left ventricular ejection fraction is estimated at 60 %. Grade II/IV diastolic dysfunction, moderately elevated filling pressures. Moderately thickened mitral valve. Moderate mitral annular calcification. No mitral valve stenosis. Trace mitral valve regurgitation. Moderate aortic valve calcification. No aortic valve stenosis. Trace aortic valve regurgitation. There is no pericardial effusion. Right atrial pressure is around 5 mm of mercury. Wojciech Harry MD (Electronically Signed) Final Date: 22 October 2024 21:06 S
== END 2024-10-15 10:46 | disposition home or self-care (01) ==
PROVIDERS: PCP Nurse Practitioner; Visit Provider Internal Medicine Cardiovascular Disease
DX: I08.0 Rheumatic disorders of both mitral and aortic valves (principal); R00.0 Tachycardia, unspecified; R06.02 Shortness of breath
CPT/HCPCS: 93306

== ENCOUNTER → 2024-11-10 11:32 | Outpatient (BNVA) | payer OTHER, SELFPAY | PROVIDERS: PCP Nurse Practitioner; Visit Provider Specialist | DX: G40.909 Epilepsy, unspecified, not intractable, without status epilepticus (principal) | CPT/HCPCS: 99213 ==

== ENCOUNTER → 2025-03-24 15:13 | Outpatient (BNVA) | payer OTHER, SELFPAY | PROVIDERS: Visit Provider Internal Medicine Cardiovascular Disease | DX: I47.11 Inappropriate sinus tachycardia, so stated (principal); J45.909 Unspecified asthma, uncomplicated; F17.290 Nicotine dependence, other tobacco product, uncomplicated | CPT/HCPCS: 99214 ==

== ENCOUNTER 2025-04-25 12:02 | Outpatient (RCR) | payer OTHER, SELFPAY | END 2025-05-13 23:59 | disposition home or self-care (01) | LOC: SPT 12:02 | PROVIDERS: Visit Provider Nurse Practitioner | DX: N39.3 Stress incontinence (female) (male) (principal); N39.46 Mixed incontinence | CPT/HCPCS: 97110; 97161; 97530 ==

== ENCOUNTER → 2025-04-28 15:34 | Outpatient (BNVA) | payer OTHER, SELFPAY | PROVIDERS: Visit Provider Internal Medicine | DX: J82.83 Eosinophilic asthma (principal); R91.8 Other nonspecific abnormal finding of lung field; Z87.891 Personal history of nicotine dependence; J44.9 Chronic obstructive pulmonary disease, unspecified; T78.40XA Allergy, unspecified, initial encounter; X58.XXXA Exposure to other specified factors, initial encounter | CPT/HCPCS: 36415; 85025; 86003; 99214; Q3014 ==

== ENCOUNTER 2025-05-04 14:53 | Outpatient (CLI) | payer OTHER, SELFPAY ==
--- NOTE | 2025-05-04 15:00 | CTR_ITS ---
PROCEDURE INFORMATION: Exam: CT Chest With Contrast; Diagnostic Exam date and time: 05/04/2025 3:09 PM Age: 34 years old Clinical indication: Abnormal findings; Abnormal radiologic exam of lung or chest; Additional info: Abnormal cxr TECHNIQUE: Imaging protocol: Diagnostic computed tomography of the chest with contrast. Radiation optimization: All CT scans at this facility use at least one of these dose optimization techniques: automated exposure control; mA and/or kV adjustment per patient size (includes targeted exams where dose is matched to clinical indication); or iterative reconstruction. Contrast material: OMNI 350; Contrast volume: 100 ml; Contrast route: INTRAVENOUS (IV); COMPARISON: CT chest wo con [id number] 01/09/2023 1:46 PM RADIATION DOSE METRICS: Total DLP (mGy-cm): 526.48 FINDINGS: Lungs: There is a conglomerate of right perihilar calcified lymph nodes. Additional calcified mediastinal lymph nodes are also present although smaller in appearance. Pleural spaces: Unremarkable. No pneumothorax. No pleural effusion. Heart: Unremarkable. No cardiomegaly. No pericardial effusion. Lymph nodes: See Lungs finding. Vasculature: Unremarkable. No aortic aneurysm. Bones/joints: Unremarkable. No acute fracture. Soft tissues: Unremarkable. CT/CT chest w con* [id number] IMPRESSION: 1. The lungs are relatively clear. 2. Sequela of chronic granulomatous disease in the mediastinum and right hilar region.
== END 2025-05-04 14:54 | disposition home or self-care (01) ==
LOC: RAD 14:54
PROVIDERS: PCP Nurse Practitioner; Visit Provider Internal Medicine
DX: J44.9 Chronic obstructive pulmonary disease, unspecified (principal); R91.8 Other nonspecific abnormal finding of lung field; R59.0 Localized enlarged lymph nodes; J98.59 Other diseases of mediastinum, not elsewhere classified
CPT/HCPCS: 71260

== ENCOUNTER → 2025-05-12 11:44 | Outpatient (BNVA) | payer OTHER, SELFPAY | PROVIDERS: PCP Nurse Practitioner; Visit Provider Internal Medicine | DX: J82.83 Eosinophilic asthma (principal); R91.8 Other nonspecific abnormal finding of lung field; R76.89 Other specified abnormal immunological findings in serum; Z87.891 Personal history of nicotine dependence; J44.9 Chronic obstructive pulmonary disease, unspecified | CPT/HCPCS: 36415; 85025; 87305; 99214; Q3014 ==

== ENCOUNTER 2025-05-14 05:00 | Outpatient (RCR) | payer OTHER, SELFPAY | END 2025-06-12 23:59 | disposition home or self-care (01) | LOC: SPT 05:00 | PROVIDERS: PCP Nurse Practitioner; Visit Provider Nurse Practitioner | DX: N39.3 Stress incontinence (female) (male) (principal); N39.46 Mixed incontinence | CPT/HCPCS: 97110; 97530 ==

== ENCOUNTER 2025-05-26 12:55 | Outpatient (CLI) | payer OTHER, SELFPAY ==
[2025-05-26 13:25] VITALS: PULSE 105; RESP 18; O2SAT 98
== END 2025-05-26 12:56 | disposition home or self-care (01) ==
LOC: RT 12:56
PROVIDERS: PCP Nurse Practitioner; Visit Provider Internal Medicine
DX: J44.9 Chronic obstructive pulmonary disease, unspecified (principal)
CPT/HCPCS: 94060; 94726; 94729; J7613

== ENCOUNTER → 2025-06-17 09:19 | Outpatient (BNVA) | payer OTHER, SELFPAY | PROVIDERS: PCP Nurse Practitioner; Visit Provider Internal Medicine | DX: J82.83 Eosinophilic asthma (principal); J30.81 Allergic rhinitis due to animal (cat) (dog) hair and dander; R93.89 Abnormal findings on diagnostic imaging of other specified body structures; Z87.891 Personal history of nicotine dependence | CPT/HCPCS: 99214; Q3014 ==